=== PATIENT | male | born 1955 | race Caucasian/White ===

== ENCOUNTER → 2023-12-24 | Outpatient (CLI) | payer OTHER ==
[2023-12-24 11:35] LABS: BASOPHILS ABSOLUTE AUTO 0.09 K/mm3 (0.00-0.23); BASOPHILS PERCENT AUTO 2 % (0-2); EOSINOPHILS PERCENT AUTO 6 % (0-6); Hematocrit 44.2 % (37.0-53.0); Hemoglobin 14.6 g/dL (13.5-17.5); IMMATURE GRAN ABSOLUTE AUTO 0.03 K/mm3 (0.00-0.10); IMMATURE GRAN PERCENT AUTO 1 % (0-1); LYMPHOCYTES ABSOLUTE AUTO 0.75 K/mm3 (0.84-5.20); LYMPHOCYTES PERCENT AUTO 16 % (21-46); MONOCYTES ABSOLUTE AUTO 0.39 K/mm3 (0.16-1.47); MONOCYTES PERCENT AUTO 8 % (4-13); Mean Corpuscular HGB 29.8 pg (26.0-34.0); Mean Corpuscular Volume 90 fL (80-100); Mean Platelet Volume 11.7 fL (9.1-12.4); NEUTROPHILS ABSOLUTE AUTO 3.24 K/mm3 (1.96-9.15); NEUTROPHILS PERCENT AUTO 68 % (41-73); Platelet Count 160 K/mm3 (150-400); RDW Coefficient Variation 13.2 % (11.7-14.2); RDW Standard Deviation 43.5 fL (35.1-46.3)
[2023-12-24 11:47] LABS: Albumin, Blood 3.3 g/dL (3.4-5.0); Albumin/Globulin Ratio 0.8 (0.8-1.8); Bilirubin, Total 0.5 mg/dL (0.1-1.0); Bun/Creatinine Ratio 15.7 (12.0-20.0); Calcium, Blood 8.9 mg/dL (8.5-10.1); Creatinine, Blood 1.02 mg/dL (0.60-1.20); Globulin, Blood 3.9 g/dL (2.2-4.0); Potassium, Blood 4.3 mmol/L (3.5-5.5); Total Protein, Blood 7.2 g/dL (6.4-8.2)
== END ==
LOC: LAB SHORT 11:23 → LAB 11:23
PROVIDERS: Physician Assistant Surgical
DX: R22.2 Localized swelling, mass and lump, trunk (principal)
CPT/HCPCS: 80053; 85025

== ENCOUNTER → 2024-01-04 | Outpatient (CLI) | payer OTHER | LOC: LAB 14:10 → LAB SHORT 14:10 | DX: C77.0 Secondary and unspecified malignant neoplasm of lymph nodes of head, face and neck (principal) | CPT/HCPCS: 88184; 88185 ==

== ENCOUNTER → 2024-01-04 | Outpatient (CLI) | payer OTHER | LOC: LAB SHORT 13:29 → LAB 13:29 | DX: C77.0 Secondary and unspecified malignant neoplasm of lymph nodes of head, face and neck (principal) | CPT/HCPCS: 88173 ==

== ENCOUNTER → 2024-01-11 | Outpatient (CLI) | payer OTHER ==
[~2024-01-11] MED LIST: ACYC400 PO; ATOR40TA PO; Amlodipine Bes2.5 MG PO; Aspir 8181 MG PO; LOSA50 PO; Lipofen150 MG PO; METF500 PO; METO25ER PO; OXYB5 PO; PARO20 PO; TAMS.4ER PO
== END | disposition home or self-care (01) ==
LOC: LAB SHORT 10:13 → LAB 10:13
DX: C77.0 Secondary and unspecified malignant neoplasm of lymph nodes of head, face and neck (principal)
CPT/HCPCS: 87102; 88184; 88185; 88305; 88323; 88341; 88342; 88360; 88365

== ENCOUNTER 2024-03-06 10:04 | Day surgery (SDC) | payer OTHER ==
[~2024-03-06] VITALS: Ht 165.1 cm; Wt 102.1 kg
[2024-03-06] VITALS (7 sets, daily range): BP systolic 130–180; BP diastolic 77–112
[2024-03-06] MEDS ORDERED: ATOR40TA PO (10:28)
[2024-03-06] MEDS ORDERED: METF500 PO (10:28)
[2024-03-06] MEDS ORDERED: TAMS.4ER PO (10:29)
[2024-03-06] MEDS ORDERED: Lipofen150 MG PO (10:29)
[2024-03-06] MEDS ORDERED: METO25ER PO (10:30)
[2024-03-06] MEDS ORDERED: LOSA50 PO (10:30)
[2024-03-06] MEDS ORDERED: OXYB5 PO (10:30)
[2024-03-06] MEDS ORDERED: Aspir 8181 MG PO (10:31)
[2024-03-06] MEDS ORDERED: PARO20 PO (10:31)
[2024-03-06] MEDS ORDERED: Amlodipine Bes2.5 MG PO (10:31)
[2024-03-06] MEDS ORDERED: ACYC400 PO (10:32)
[2024-03-06] MEDS ORDERED: Vancomycin HCL 1,000 MG in NS 250 ML IV ONE (10:35)
[2024-03-06] MEDS ORDERED: NS 500 ML IV ONE (11:53)
[2024-03-06] MEDS ORDERED: Lidocaine 2%-Epineph 1:100000 20 ML MDV ONE (11:53)
[2024-03-06] MEDS ORDERED: Heparin Sodium 1000 Units/ML 10ML MDV ONE (11:53)
[2024-03-06] MEDS ORDERED: NS 1,000 ML IV ONE (11:55)
[2024-03-06] MEDS ORDERED: Midazolam HCl 1MG / ML 2ML Vial ONE ×2 (11:55→12:38)
[2024-03-06] MEDS ORDERED: FentaNYL Citrate 50 MCG/ML 2 ML Injection ONE ×2 (11:55→12:39)
--- NOTE | 2024-03-06 13:44 | NUR ---
PT RETURNED TO RECOVERY ROOM IN BED. MEDIPORT SITE SOFT NON-TENDER WITH NO HEMATOMA, NO BLEEDING. PT SITTING UP EATING LUMCH. PT'S IN ROOM. CALL LIGHT IN REACH.
--- NOTE | 2024-03-06 13:54 | NUR ---
NO CHANGES TO MEDIPORT SITE. PT EATING LUMCN.
--- NOTE | 2024-03-06 14:34 | NUR ---
NO CHANGES TO MEDIPORT SITE. DISCHARGE INSTRUCTIONS REVIEWED ALL QUESTIONS ANSWERED. 22 G IV DISCONTINUED FROM RIGHT AC WITH INTACT CANNULA. PT ESCORTED OUT VIA WHEELCHAIR ESCORT.
== END 2024-03-06 14:30 | disposition home or self-care (01) ==
LOC: MHTC 10:04
DX: Z45.2 Encounter for adjustment and management of vascular access device (principal); C83.31 Diffuse large B-cell lymphoma, lymph nodes of head, face, and neck; I10 Essential (primary) hypertension; Z87.891 Personal history of nicotine dependence; Z79.82 Long term (current) use of aspirin; Z79.84 Long term (current) use of oral hypoglycemic drugs; Z79.899 Other long term (current) drug therapy; Z88.0 Allergy status to penicillin; Z88.5 Allergy status to narcotic agent; Z95.5 Presence of coronary angioplasty implant and graft
CPT/HCPCS: 36561; 76937; 99152; 99153; C1769; C1788; C1894; J1642; J1644; J2250; J3010; J3370; J7030; J7040; J7050

== ENCOUNTER → 2024-08-29 | Outpatient (CLI) | payer OTHER ==
[2024-08-29 15:52] LABS: BASOPHILS ABSOLUTE AUTO 0.08 K/mm3 (0.00-0.23); BASOPHILS PERCENT AUTO 1 % (0-2); EOSINOPHILS ABSOLUTE AUTO 0.24 K/mm3 (0.00-0.68); EOSINOPHILS PERCENT AUTO 4 % (0-6); Hematocrit 40.5 % (37.0-53.0); Hemoglobin 13.3 g/dL (13.5-17.5); IMMATURE GRAN ABSOLUTE AUTO 0.04 K/mm3 (0.00-0.10); IMMATURE GRAN PERCENT AUTO 1 % (0-1); LYMPHOCYTES ABSOLUTE AUTO 0.56 K/mm3 (0.84-5.20); LYMPHOCYTES PERCENT AUTO 9 % (21-46); MONOCYTES ABSOLUTE AUTO 0.53 K/mm3 (0.16-1.47); MONOCYTES PERCENT AUTO 9 % (4-13); Mean Corpuscular HGB 30.4 pg (26.0-34.0); Mean Corpuscular HGB Conc 32.8 g/dL (31.5-36.5); Mean Corpuscular Volume 93 fL (80-100); Mean Platelet Volume 10.1 fL (9.1-12.4); NEUTROPHILS ABSOLUTE AUTO 4.73 K/mm3 (1.96-9.15); NEUTROPHILS PERCENT AUTO 77 % (41-73); Platelet Count 206 K/mm3 (150-400); RDW Coefficient Variation 13.6 % (11.7-14.2); RDW Standard Deviation 46.6 fL (35.1-46.3); Red Blood Cell Count 4.37 M/mm3 (4.30-5.90); White Blood Cell Count 6.18 K/mm3 (4.00-11.30)
[2024-08-29 16:11] LABS: Albumin, Blood 3.6 g/dL (3.4-5.0); Bilirubin, Total 0.5 mg/dL (0.1-1.0); Bun/Creatinine Ratio 19.8 (12.0-20.0); Calcium, Blood 9.4 mg/dL (8.5-10.1); Creatinine, Blood 0.96 mg/dL (0.60-1.20); Globulin, Blood 3.5 g/dL (2.2-4.0); Thyroid Stimulating Hormone 1.463 uIU/mL (0.360-4.800); Total Protein, Blood 7.1 g/dL (6.4-8.2)
== END ==
LOC: LAB 15:47 → LAB SHORT 15:47
PROVIDERS: Physician Assistant
DX: R55 Syncope and collapse (principal); R53.83 Other fatigue
CPT/HCPCS: 80053; 83690; 84443; 84484; 85025

== ENCOUNTER → 2025-05-08 | Outpatient (CLI) | payer OTHER | LOC: LAB 17:28 → LAB SHORT 17:28 | DX: N39.498 Other specified urinary incontinence (principal) | CPT/HCPCS: 87086 ==

== ENCOUNTER → 2025-05-08 | Outpatient (CLI) | payer OTHER ==
[2025-05-08 15:55] LABS: BASOPHILS ABSOLUTE AUTO 0.07 K/mm3 (0.00-0.23); BASOPHILS PERCENT AUTO 1 % (0-2); EOSINOPHILS ABSOLUTE AUTO 0.04 K/mm3 (0.00-0.68); EOSINOPHILS PERCENT AUTO 0 % (0-6); Hematocrit 42.9 % (37.0-53.0); Hemoglobin 14.6 g/dL (13.5-17.5); IMMATURE GRAN ABSOLUTE AUTO 0.06 K/mm3 (0.00-0.10); IMMATURE GRAN PERCENT AUTO 1 % (0-1); LYMPHOCYTES ABSOLUTE AUTO 0.65 K/mm3 (0.84-5.20); LYMPHOCYTES PERCENT AUTO 6 % (21-46); MONOCYTES ABSOLUTE AUTO 0.98 K/mm3 (0.16-1.47); MONOCYTES PERCENT AUTO 9 % (4-13); Mean Corpuscular HGB Conc 34.0 g/dL (31.5-36.5); Mean Corpuscular Volume 88 fL (80-100); NEUTROPHILS ABSOLUTE AUTO 9.17 K/mm3 (1.96-9.15); NEUTROPHILS PERCENT AUTO 84 % (41-73); NRBC ABSOLUTE 0.00 K/mm3 (0.00-0.02); NRBC Auto 0.0 /100 WBC (0.0-0.2); Platelet Count 168 K/mm3 (150-400); RDW Coefficient Variation 13.7 % (11.7-14.2); RDW Standard Deviation 44.0 fL (35.1-46.3)
[2025-05-08 16:04] LABS: Alanine Aminotransfer (ALT/SGP 20.0 U/L (12-78); Albumin, Blood 3.1 g/dL (3.4-5.0); Albumin/Globulin Ratio 0.8 (0.8-1.8); Anion Gap 11.0 mmol/L (3-11); Aspartate Aminotrans (AST/SGOT 17.0 U/L (12-37); Bilirubin, Total 2.0 mg/dL (0.1-1.0); Blood Urea Nitrogen 10.0 mg/dL (8-24); CO2, Blood 28.0 mmol/L (21-32); Calcium, Blood 8.8 mg/dL (8.5-10.1); Chloride, Blood 100.0 mmol/L (98-108); Creatinine, Blood 1.01 mg/dL (0.60-1.20); Globulin, Blood 3.9 g/dL (2.2-4.0); Glucose, Blood 225.0 mg/dL (70-99); Potassium, Blood 4.0 mmol/L (3.5-5.5); Sodium, Blood 135.0 mmol/L (136-145); Total Protein, Blood 7.0 g/dL (6.4-8.2)
== END ==
LOC: LAB 15:50 → LAB SHORT 15:50
PROVIDERS: Physician Assistant
DX: R10.31 Right lower quadrant pain (principal); N39.498 Other specified urinary incontinence
CPT/HCPCS: 80053; 83690; 85025

== ENCOUNTER 2025-05-26 13:34 | Inpatient (IN) | payer OTHER ==
[~2025-05-26] VITALS: Ht 165.1 cm; Wt 95.3 kg
[~2025-05-26 13:34] MED LIST changes: -CIPR500 PO; -FAMO20 PO; -INSULANPEN SC; -METR500 PO; -MIRALAX17 GM PO; -OXYC5 PO; -OZEMPIC0.25 MG/02 SC
[2025-05-26 14:32] VITALS: BP 139/76
[2025-05-26] MEDS ORDERED: INSULANPEN SC ×2 (14:34)
[2025-05-26] MEDS ORDERED: OZEMPIC0.25 MG/02 SC ×2 (14:36)
[2025-05-26] MEDS ORDERED: FLU VACC TS2025(65UP)/MF59C/PF 45 MCG/0.5 ML SYRINGE IM SCH (15:40)
[2025-05-26] MEDS ORDERED: Ciprofloxacin 400MG/D5 200ML 200 ML IV SCH (17:06)
--- NOTE | 2025-05-26 18:48 | NUR ---
SHIFT SUMMARY: PATIENT A+O X3 AND ABLE TO MAKE NEEDS KNOWN. SKIN INTACT, DRY AND FRAGILE. S1, S2 HEARD ON ASCULTATION. LUNGS CLEAR THROUGHOUT. LAST NOTED BOWEL MOVEMENT WAS 05/26/25. VOIDING CLEAR YELLOW URINE. AMBULATE c FWW AND SBA. IV ABX GIVEN DURING THIS DAY ONCE ARRIVED TO SURGICAL FLOOR. PLAN TO HAVE POSSIBLE SURGERY TOMORROW FOR RUPTURED APPENDIX. PLAN TO GIVE REPORT TO ONCOMING NURSE.
[2025-05-26 19:28] VITALS: BP 138/87
[2025-05-26] MEDS ORDERED: MetroNIDAZOLE 500MG/NS 100 ml 100 ML IV SCH (22:11)
[2025-05-26] MEDS ORDERED: NS 250 ML IV PRN (22:55)
[2025-05-27] VITALS (16 sets, daily range): BP systolic 125–152; BP diastolic 67–91
[2025-05-27] MEDS ORDERED: NS 1,000 ML IV SCH (01:20)
--- NOTE | 2025-05-27 02:32 | NUR ---
PTS RN MIA STATED SHE RECEIVED IN REPORT FROM ABI VALVERDE OVEN DUMPER THAT PT WAS TO BE NPO AFTER MIDNIGHT 12/6 PER HIS DISCUSSION WITH DR COLLIER.
[2025-05-27] MEDS ORDERED: Ciprofloxacin 400MG/D5 200ML 200 ML IV SCH (06:00)
--- NOTE | 2025-05-27 06:31 | NUR ---
SHIFT SUMMARY PT ADMITTED FOR ACUTE APPENICITIS. NO ACUTE CHANGES THIS SHIFT. ORIENTED TO PERSON, PLACE, AND SITUATION. INTERMITTENTLY CONFUSED ON DATE AND TIME. PT MAKES NEEDS KNOWN AND CALLS APPROPRIATELY. PT NPO SINCE 0000 WITH ANTICIPATION OF SURGERY TODAY. WILL GIVE REPORT TO ONCOMING NURSE. CALL LIGHT WITHIN REACH.
[2025-05-27 07:41] LABS: BASOPHILS ABSOLUTE AUTO 0.08 K/mm3 (0.00-0.23); BASOPHILS PERCENT AUTO 1 % (0-2); EOSINOPHILS ABSOLUTE AUTO 0.10 K/mm3 (0.00-0.68); EOSINOPHILS PERCENT AUTO 1 % (0-6); Hematocrit 37.7 % (37.0-53.0); Hemoglobin 12.6 g/dL (13.5-17.5); IMMATURE GRAN ABSOLUTE AUTO 0.05 K/mm3 (0.00-0.10); IMMATURE GRAN PERCENT AUTO 1 % (0-1); LYMPHOCYTES ABSOLUTE AUTO 0.52 K/mm3 (0.84-5.20); LYMPHOCYTES PERCENT AUTO 7 % (21-46); MONOCYTES ABSOLUTE AUTO 0.73 K/mm3 (0.16-1.47); MONOCYTES PERCENT AUTO 10 % (4-13); Mean Corpuscular HGB Conc 33.4 g/dL (31.5-36.5); Mean Corpuscular Volume 87 fL (80-100); NEUTROPHILS ABSOLUTE AUTO 6.07 K/mm3 (1.96-9.15); NEUTROPHILS PERCENT AUTO 80 % (41-73); NRBC ABSOLUTE 0.00 K/mm3 (0.00-0.02); NRBC Auto 0.0 /100 WBC (0.0-0.2); Platelet Count 193 K/mm3 (150-400); RDW Coefficient Variation 13.2 % (11.7-14.2); RDW Standard Deviation 41.9 fL (35.1-46.3)
[2025-05-27 07:52] LABS: Alanine Aminotransfer (ALT/SGP 19.0 U/L (12-78); Albumin, Blood 2.5 g/dL (3.4-5.0); Albumin/Globulin Ratio 0.7 (0.8-1.8); Anion Gap 9.0 mmol/L (3-11); Aspartate Aminotrans (AST/SGOT 13.0 U/L (12-37); Bilirubin, Total 1.1 mg/dL (0.1-1.0); Blood Urea Nitrogen 11.0 mg/dL (8-24); CO2, Blood 27.0 mmol/L (21-32); Calcium, Blood 8.3 mg/dL (8.5-10.1); Chloride, Blood 105.0 mmol/L (98-108); Creatinine, Blood 0.75 mg/dL (0.60-1.20); Globulin, Blood 3.7 g/dL (2.2-4.0); Glucose, Blood 180.0 mg/dL (70-99); Magnesium, Blood 1.9 mg/dL (1.6-2.4); Potassium, Blood 3.2 mmol/L (3.5-5.5); Sodium, Blood 138.0 mmol/L (136-145); Total Protein, Blood 6.2 g/dL (6.4-8.2)
[2025-05-27] MEDS ORDERED: MetFORMIN HCl 500 mg PO SCH (08:00)
--- NOTE | 2025-05-27 08:54 | NUR ---
DR HERNANDEZ IN WITH PT AND FAMILY TO DISCUSS OPTIONS.
[2025-05-27] MEDS ORDERED: Insulin Glargine-Yfgn 100 Unit/mL 3 ML SYR SC SCH (09:00)
[2025-05-27] MEDS ORDERED: Enoxaparin 40 MG/0.4 ML SYR SC SCH (09:00)
[2025-05-27] MEDS ORDERED: Ondansetron HCl 2 MG / ML 2ML Vial IV PRN (09:30)
[2025-05-27] MEDS ORDERED: HYDROmorphone HCl/Pf 1MG SYR IV PRN ×2 (09:30→12:50)
[2025-05-27] MEDS ORDERED: Albuterol 2.5 MG/3 ML VIAL INH PRN (09:30)
[2025-05-27] MEDS ORDERED: FentaNYL Citrate 50 MCG/ML 2 ML Injection IV PRN ×2 (09:30)
[2025-05-27] MEDS ORDERED: Bupivacaine 0.5% HCl 5 MG/ML 30MLVIAL ONE (10:17)
--- NOTE | 2025-05-27 10:17 | NUR ---
PT ARRIVES TO PACU VIA [facility] AT 0950 FROM RM 208 FOR PREOP CARE. AT [facility] SIDE. DENIES PAIN/NAUSEA. SURGICAL PACK COMPLETE. SURGICAL HAT/PAS SLEEVES/BP CUFF IN PLACE. AFEBRILE/VSS. LR AT TKO. NO COMPLAINTS. WARM BLANKETS PLACED FOR COMFORT. WILL CONTINUE MONITORING IN PACU.
--- NOTE | 2025-05-27 10:29 | NUR ---
PT TO OR 1 VIA [facility] IN STABLE CONDITION AT 1025.
[2025-05-27] MEDS ORDERED: FentaNYL Citrate 50 MCG/ML 2 ML Injection ONE ×2 (10:31→11:52)
[2025-05-27] MEDS ORDERED: Dexamethasone Sod Phos 10 MG/ML 1ML VIAL ONE (10:38)
[2025-05-27] MEDS ORDERED: Ondansetron HCl 2 MG / ML 2ML Vial ONE (10:38)
[2025-05-27] MEDS ORDERED: Rocuronium Bromide 10 MG/ML 5ML Injection IV ONE (10:38)
[2025-05-27] MEDS ORDERED: Sugammadex Sodium 200 MG/2ML SDV (100 MG/ML) ONE (10:39)
--- NOTE | 2025-05-27 17:16 | NUR ---
SHIFT SUMMARY PT WITH APPENDECTOMY TODAY. PT NOW HAS FOUR LAP SITES AND AIDE DRAIN TO ABD. TAKING PO OXYCODONE FOR PAIN.
--- NOTE | 2025-05-28 03:47 | NUR ---
SHIFT SUMMARY NOC. PT POD 1 FOR LAP APPY. PT A/O X4, LAP SITES C/D/I, ELIAS DRAIN PRODUCING SEROSANG DRAINAGE THIS SHIFT. PT MEDICATED FOR PAIN WITH REPORTED RELIEF OF SX. PT VOIDING URINE AND TOLERATING PO CLEAR LIQUIDS. PT MAKES NEEDS KNOWN, CALL LIGHT IN REACH.
[2025-05-28 05:06] VITALS: BP 125/74
[2025-05-28 07:43] VITALS: BP 131/75
[2025-05-28] MEDS ORDERED: Polyethylene Glycol 3350 17 gm PO PRN (10:55)
[2025-05-28 14:27] VITALS: BP 144/80
[2025-05-28 19:17] VITALS: BP 141/83
--- NOTE | 2025-05-28 19:32 | NUR ---
SHIFT SUMMARY: PATIENT A+O X4 AND ABLE TO MAKE NEEDS KNOWN THROUGHOUT THIS DAY. SURGICAL SITES REMAIN C/D/I. NO NEW OR ACUTE CHANGES THIS SHIFT. PATIENT HAD GOTTEN UP X2-3 TIMES TO SIT IIN THE RECLINER CHAIR THIS DAY. TOLERATED WELL. MEDICATED X3 TIMES FOR PAIN. SEE EMAR FOR DETAILS. 25ML'S DRAINED FROM ELIAS DRAIN. CLEAR SS FLUID. STOMACH REMAINS DISTENDED, ASKED PATIENT ABOUT CONSTIPATION, MIRALAX GIVEN. NO BM THIS SHIFT. PLAN TO REPORT TO ONCOMING NURSE. BED IN LOWEST POSITION, CALL LIGHT WITHIN REACH.
[2025-05-29 04:31] VITALS: BP 138/73
[2025-05-29 04:59] LABS: BASOPHILS ABSOLUTE AUTO 0.06 K/mm3 (0.00-0.23); BASOPHILS PERCENT AUTO 1 % (0-2); EOSINOPHILS ABSOLUTE AUTO 0.11 K/mm3 (0.00-0.68); EOSINOPHILS PERCENT AUTO 2 % (0-6); Hematocrit 38.1 % (37.0-53.0); Hemoglobin 12.3 g/dL (13.5-17.5); IMMATURE GRAN ABSOLUTE AUTO 0.05 K/mm3 (0.00-0.10); IMMATURE GRAN PERCENT AUTO 1 % (0-1); LYMPHOCYTES ABSOLUTE AUTO 0.57 K/mm3 (0.84-5.20); LYMPHOCYTES PERCENT AUTO 9 % (21-46); MONOCYTES ABSOLUTE AUTO 0.71 K/mm3 (0.16-1.47); MONOCYTES PERCENT AUTO 11 % (4-13); Mean Corpuscular HGB Conc 32.3 g/dL (31.5-36.5); Mean Corpuscular Volume 89 fL (80-100); NEUTROPHILS ABSOLUTE AUTO 4.93 K/mm3 (1.96-9.15); NEUTROPHILS PERCENT AUTO 77 % (41-73); NRBC ABSOLUTE 0.00 K/mm3 (0.00-0.02); NRBC Auto 0.0 /100 WBC (0.0-0.2); Platelet Count 187 K/mm3 (150-400); RDW Coefficient Variation 13.1 % (11.7-14.2); RDW Standard Deviation 43.0 fL (35.1-46.3)
[2025-05-29 06:07] LABS: Alanine Aminotransfer (ALT/SGP 20.0 U/L (12-78); Albumin, Blood 2.3 g/dL (3.4-5.0); Albumin/Globulin Ratio 0.7 (0.8-1.8); Anion Gap 9.0 mmol/L (3-11); Aspartate Aminotrans (AST/SGOT 14.0 U/L (12-37); Bilirubin, Total 0.4 mg/dL (0.1-1.0); Blood Urea Nitrogen 17.0 mg/dL (8-24); CO2, Blood 28.0 mmol/L (21-32); Calcium, Blood 8.1 mg/dL (8.5-10.1); Chloride, Blood 106.0 mmol/L (98-108); Creatinine, Blood 0.8 mg/dL (0.60-1.20); Globulin, Blood 3.3 g/dL (2.2-4.0); Glucose, Blood 171.0 mg/dL (70-99); Potassium, Blood 3.6 mmol/L (3.5-5.5); Sodium, Blood 139.0 mmol/L (136-145); Total Protein, Blood 5.6 g/dL (6.4-8.2)
--- NOTE | 2025-05-29 06:14 | NUR ---
SHIFT SUMMARY NOC. PT POD 2 FOR LAP APPY c RUPTURE. LAP SITES C/D/I, ELIAS DRAIN SITE COVERED WITH CHG DRESSING AND PRODUCING SEROSANGUINEOUS OUTPUT. PT MEDICATED FOR PAIN WITH ORAL OXYCODONE AND TYLENOL THIS SHIFT WITH REPORTED RELIEF. PT DECLINED NEED FOR MEDICATION AT LAST CARE ROUND. PT VOIDING URINE AND TOLERATING DIET ORDERED. IV ABX PER EMAR. PT MAKES NEEDS KNOWN. CALL LIGHT IN REACH.
[2025-05-29 07:14] VITALS: BP 133/63
[2025-05-29] MEDS ORDERED: MIRALAX17 GM PO ×2 (14:10)
[2025-05-29] MEDS ORDERED: CIPR500 PO ×2 (14:11)
[2025-05-29] MEDS ORDERED: METR500 PO ×2 (14:11)
[2025-05-29] MEDS ORDERED: FAMO20 PO ×2 (14:12)
[2025-05-29] MEDS ORDERED: OXYC5 PO ×2 (14:13)
[2025-05-29 14:37] VITALS: BP 140/72
--- NOTE | 2025-05-29 15:04 | NUR ---
SUMMARY ASSUMED CARE OF PT @0700. VSS. AXO4. ELIAS DRAIN WITH TOTAL 25MLS OUTPUT THIS SHIFT. DRESSING CHANGED. LAP SITES CDI. ON RA SINCE SHIFT ASSUMPTION. HAD BM. VOIDING WELL. TOLERATING PO INTAKE WELL. PT WANTING TO GO DC. DR YADAV EXPRESSED DESIRE TO KEEP PT OVERNIGHT BUT PT ADAMANT ABOUT GOING HOME. DR HERNANDEZ APPROVED DC IN NOTE. dR YADAV PROVIDED DC ORDERS. DC INSTRUCTIONS GIVEN TO PT AND SPOUSE. EMPHASIS PLOACED ON ELIAS DRAIN CARE AND DILIP. SUPPLIES GIVEN TO PT AND SPOUSE. IV PULLED. VSS. PT DC'D @1501.
== END 2025-05-29 15:03 | disposition home or self-care (01) | DRG 398 ==
LOC: SURS 13:34
PROVIDERS: Internal Medicine; Surgery; ADMIT Internal Medicine
PROC: 8E0W4CZ Robotic Assisted Procedure of Trunk Region, Percutaneous Endoscopic Approach (ICD-10-PCS; 2025-05-27)
PROC: 0DTJ4ZZ Resection of Appendix, Percutaneous Endoscopic Approach (ICD-10-PCS; principal; 2025-05-27 09:00)
DX: K35.33 Acute appendicitis with perforation, localized peritonitis, and gangrene, with abscess (principal); I47.10 Supraventricular tachycardia, unspecified; J84.9 Interstitial pulmonary disease, unspecified; E11.42 Type 2 diabetes mellitus with diabetic polyneuropathy; E78.5 Hyperlipidemia, unspecified; E11.51 Type 2 diabetes mellitus with diabetic peripheral angiopathy without gangrene; E66.9 Obesity, unspecified; G25.81 Restless legs syndrome; I11.0 Hypertensive heart disease with heart failure; I50.9 Heart failure, unspecified; F41.8 Other specified anxiety disorders; K76.0 Fatty (change of) liver, not elsewhere classified; N40.0 Benign prostatic hyperplasia without lower urinary tract symptoms; Z85.51 Personal history of malignant neoplasm of bladder; Z85.72 Personal history of non-Hodgkin lymphomas; I25.2 Old myocardial infarction; Z95.5 Presence of coronary angioplasty implant and graft; Z87.891 Personal history of nicotine dependence; Z88.1 Allergy status to other antibiotic agents; Z88.0 Allergy status to penicillin; Z79.82 Long term (current) use of aspirin; Z79.4 Long term (current) use of insulin; Z79.899 Other long term (current) drug therapy; Z79.85 Long-term (current) use of injectable non-insulin antidiabetic drugs
CPT/HCPCS: 36415; 80053; 82947; 83735; 85025; 88304; 93005; 93010; 94762; 97116; 97162; A9270; J0744; J1100; J1171; J1650; J1815; J2405; J2704; J3010; J7030; J7050; J7120

== ENCOUNTER → 2025-05-26 | Outpatient (CLI) | payer OTHER ==
[~2025-05-26] MED LIST changes: +CIPR500 PO; +FAMO20 PO; +INSULANPEN SC; +METR500 PO; +MIRALAX17 GM PO; +OXYC5 PO; +OZEMPIC0.25 MG/02 SC
[2025-05-26 11:24] LABS: BASOPHILS ABSOLUTE AUTO 0.09 K/mm3 (0.00-0.23); BASOPHILS PERCENT AUTO 1 % (0-2); EOSINOPHILS ABSOLUTE AUTO 0.10 K/mm3 (0.00-0.68); EOSINOPHILS PERCENT AUTO 1 % (0-6); Hematocrit 44.7 % (37.0-53.0); Hemoglobin 14.6 g/dL (13.5-17.5); IMMATURE GRAN ABSOLUTE AUTO 0.04 K/mm3 (0.00-0.10); IMMATURE GRAN PERCENT AUTO 1 % (0-1); LYMPHOCYTES ABSOLUTE AUTO 0.60 K/mm3 (0.84-5.20); LYMPHOCYTES PERCENT AUTO 7 % (21-46); MONOCYTES ABSOLUTE AUTO 0.66 K/mm3 (0.16-1.47); MONOCYTES PERCENT AUTO 8 % (4-13); Mean Corpuscular HGB Conc 32.7 g/dL (31.5-36.5); Mean Corpuscular Volume 88 fL (80-100); NEUTROPHILS ABSOLUTE AUTO 7.03 K/mm3 (1.96-9.15); NEUTROPHILS PERCENT AUTO 83 % (41-73); NRBC ABSOLUTE 0.00 K/mm3 (0.00-0.02); NRBC Auto 0.0 /100 WBC (0.0-0.2); Platelet Count 244 K/mm3 (150-400); RDW Coefficient Variation 13.2 % (11.7-14.2); RDW Standard Deviation 42.6 fL (35.1-46.3)
[2025-05-26 11:35] LABS: Alanine Aminotransfer (ALT/SGP 25.0 U/L (12-78); Albumin, Blood 3.1 g/dL (3.4-5.0); Albumin/Globulin Ratio 0.7 (0.8-1.8); Anion Gap 15.0 mmol/L (3-11); Aspartate Aminotrans (AST/SGOT 18.0 U/L (12-37); Bilirubin, Total 1.2 mg/dL (0.1-1.0); Blood Urea Nitrogen 11.0 mg/dL (8-24); CO2, Blood 28.0 mmol/L (21-32); Calcium, Blood 9.2 mg/dL (8.5-10.1); Chloride, Blood 102.0 mmol/L (98-108); Creatinine, Blood 0.97 mg/dL (0.60-1.20); Globulin, Blood 4.5 g/dL (2.2-4.0); Glucose, Blood 178.0 mg/dL (70-99); Potassium, Blood 3.8 mmol/L (3.5-5.5); Sodium, Blood 141.0 mmol/L (136-145); Total Protein, Blood 7.6 g/dL (6.4-8.2)
== END ==
LOC: LAB 11:20 → LAB SHORT 11:20
PROVIDERS: Physician Assistant
DX: R10.9 Unspecified abdominal pain (principal)
CPT/HCPCS: 80053; 83690; 85025

== ENCOUNTER 2025-05-29 16:36 | Emergency (ER) | payer OTHER ==
[~2025-05-29] VITALS: Ht 165.1 cm; Wt 95.2 kg
[~2025-05-29 16:36] MED LIST changes: +CIPR500 PO; +FAMO20 PO; +INSULANPEN SC; +METR500 PO; +MIRALAX17 GM PO; +OXYC5 PO; +OZEMPIC0.25 MG/02 SC
== END 2025-05-29 17:10 | disposition home or self-care (01) ==
LOC: ER 16:36
DX: K91.89 Other postprocedural complications and disorders of digestive system (principal); Z88.0 Allergy status to penicillin; Z88.4 Allergy status to anesthetic agent; Z79.899 Other long term (current) drug therapy; E11.40 Type 2 diabetes mellitus with diabetic neuropathy, unspecified
CPT/HCPCS: 99282